=== PATIENT | female | born 1945 | race American Indian/Alaskan Native ===

== ENCOUNTER 2016-10-26 08:03 | Outpatient (CLI) | payer MEDICARE ==
--- NOTE | 2016-10-26 14:01 | Mammography Report ---
BILATERAL DIGITAL SCREENING MAMMOGRAM with CAD: 10/26/16 08:03:00 CLINICAL: Routine screening. COMPARISON:09/26/14 FINDINGS: The breasts are almost entirely fatty. No mass, architectural distortion or suspicious calcifications. IMPRESSION: No mammographic evidence of malignancy. BI-RADS CATEGORY: 1 - - Negative RECOMMENDATION: Routine mammographic screening in one year. COMMENT: Patient follow-up letters are generated by our [employer] application.
== END 2016-10-26 08:04 | disposition home or self-care (01) ==
LOC: SPVWC 08:03
PROVIDERS: ATTEND Internal Medicine
DX: Z12.31 Encounter for screening mammogram for malignant neoplasm of breast (principal)
CPT/HCPCS: 77067; G0202

== ENCOUNTER 2017-05-31 06:16 | Emergency (ER) | payer MEDICARE ==
[2017-05-31 06:48] LABS: Bilirubin,Urine NEG (Negative); Blood,Urine LG (Negative); Ketones,Urine NEG (Negative); Leukocyte Esterase,Urine NEG (Negative); Mucus,Urine FEW /HPF; Nitrite,Urine NEG (Negative); Urobilinogen,Urine < 2.0 mg/dL (<2.0)
[2017-05-31 06:49] LABS: RBC,Urine > 182.0 /HPF (0.0-6.0)
[2017-05-31 07:11] LABS: Basophils % (Auto) 1.1 % (0.0-1.8); Eosinophils % (Auto) 2.9 % (0.0-4.3); Hemoglobin 13.3 gm/dl (10.1-14.3); Mean Corpuscular HGB Conc 33 % (30-34); Mean Corpuscular Hemoglobin 28 pg (28-32); Mean Corpuscular Volume 84 fl (79-97); Platelet Count 226 K/mm3 (140-440); Red Blood Count 4.74 M/mm3 (3.65-5.03); Red Cell Distribution Width 13.7 % (13.2-15.2); White Blood Count 6.4 K/mm3 (4.5-11.0)
[2017-05-31 07:29] LABS: Anion Gap 18 mmol/L; BUN/Creatinine Ratio 28.57; Blood Urea Nitrogen 20 mg/dL (7-17); Carbon Dioxide 23 mmol/L (22-30); Chloride 105.2 mmol/L (98-107); Glucose 128 mg/dL (65-100); Potassium 3.7 mmol/L (3.6-5.0); Sodium 142 mmol/L (137-145)
--- NOTE | 2017-05-31 09:36 | Emergency Department Report ---
ED Female HPI - General Chief complaint: Urogenital-Female Stated complaint: POSS UTI Time Seen by Provider: 05/31/17 09:24 Source: patient Mode of arrival: Ambulatory Limitations: No Limitations - History of Present Illness Initial comments: This is a 72-year-old female nontoxic, well nourished in appearance, no acute signs of distress presents to the ED complaining of dysuria x2 days. Patient denies any hematuria, back pain, nausea, vomiting, abdominal pain, pelvic pain, vaginal discharge, fever, chills, nausea vomiting, vomiting, chest pain or shortness of breath. Patient stated she has a burning sensation upon urination. States allergies to lisinopril. Past medical history includes diabetes and hypertension. MD Complaint: dysuria -: Gradual, days(s) (2) Radiation: non-radiating Severity: mild Quality: burning Consistency: constant Improves with: none Worsens with: urination Are you Now?: No Associated Symptoms: dysuria. denies: vaginal discharge, vaginal bleeding, nausea/vomiting, fever/chills, headaches, loss of appetite, hematuria, rash, seizure, shortness of breath, syncope, weakness - Related Data Sexually active: No Home Medications Medication Instructions Recorded Confirmed Last Taken Calcium Carbonate/Vitamin D3 1 tab PO QDAY 06/22/13 06/22/13 06/22/13 10:00 [Calcium 600-Vit D3 200 Tablet] Hydrochlorothiazide [HCTZ] 12.5 mg PO QDAY 06/22/13 06/22/13 06/22/13 10:00 Mirabegron [Myrbetriq] 25 mg PO QDAY 06/22/13 06/22/13 06/22/13 10:00 Multivitamin [Multi-Vitamin Daily] 1 tab PO QDAY 06/22/13 06/22/13 06/22/13 10: 00 Potassium Chloride 10 meq PO BID 06/22/13 06/22/13 06/22/13 10:00 Pravastatin Sodium [Pravastatin] 20 mg PO QHS 06/22/13 06/22/13 06/21/13 21:00 Prednisone [predniSONE] 7.5 mg PO QDAY 06/22/13 06/22/13 06/22/13 10:00 Triamter/Hctz 37.5-25 mg 1 tab PO QDAY 10/06/22/13 06/22/13 10:00 [Maxzide-25] metFORMIN [Glucophage] 500 mg PO BID 06/22/13 06/22/13 06/22/13 10:00 Previous Rx's Medication Instructions Recorded Last Taken Type Hydrocodone Bit/Acetaminophen 1 each PO Q6H PRN #12 tablet 06/22/13 Unknown Rx [Lortab 5-500 Tablet] Diazepam Tab [Valium] 2 mg PO TID PRN #14 tablet 08/10/15 Unknown Rx Polyethylene Glycol 3350 [Miralax 17 gm PO QDAY #30 packet 05/31/17 Unknown Rx 3350] Sulfamethoxazole/Trimethoprim 1 each PO BID #14 tablet 05/31/17 Unknown Rx [Bactrim DS TAB] Allergies Allergy/AdvReac Type Severity Reaction Status Date / Time lisinopril Allergy Swelling Verified 06/22/13 11:48 ED Review of Systems ROS: Stated complaint: POSS UTI Other details as noted in HPI Constitutional: denies: chills, fever Eyes: denies: eye pain, eye discharge, vision change ENT: denies: ear pain, throat pain Respiratory: denies: cough, shortness of breath, wheezing Cardiovascular: denies: chest pain, palpitations Endocrine: no symptoms reported Gastrointestinal: denies: abdominal pain, nausea, diarrhea Genitourinary: dysuria. denies: urgency, discharge Musculoskeletal: denies: back pain, joint swelling, arthralgia Skin: denies: rash, lesions Neurological: denies: headache, weakness, paresthesias Psychiatric: denies: anxiety, depression Hematological/Lymphatic: denies: easy bleeding, easy bruising ED Past Medical Hx - Past Medical History Previous Medical History?: Yes Hx Hypertension: Yes Hx Diabetes: Yes Additional medical history: polymyalgia rheumatica - Surgical History Past Surgical History?: Yes Hx Breast Surgery: Yes (breast reduction) Additional Surgical History: hysterectomy. total left knee. bilateral carpel tunel. tumor right ear removed - Social History Smoking Status: Never Smoker Substance Use Type: None - Medications Home Medications: Home Medications Medication Instructions Recorded Confirmed Last Taken Type Calcium Carbonate/Vitamin D3 1 tab PO QDAY 06/22/13 06/22/13 06/22/13 10:00 History [Calcium 600-Vit D3 200 Tablet] Hydrochlorothiazide [HCTZ] 12.5 mg PO QDAY 06/22/13 06/22/13 06/22/13 10:00 History Hydrocodone Bit/Acetaminophen 1 each PO Q6H PRN #12 tablet 06/22/13 Unknown Rx [Lortab 5-500 Tablet] Mirabegron [Myrbetriq] 25 mg PO QDAY 06/22/13 06/22/13 06/22/13 10:00 History Multivitamin [Multi-Vitamin Daily] 1 tab PO QDAY 06/22/13 06/22/13 06/22/13 10: 00 History Potassium Chloride 10 meq PO BID 06/22/13 06/22/13 06/22/13 10:00 History Pravastatin Sodium [Pravastatin] 20 mg PO QHS 06/22/13 06/22/13 06/21/13 21:00 History Prednisone [predniSONE] 7.5 mg PO QDAY 06/22/13 06/22/13 06/22/13 10:00 History Triamter/Hctz 37.5-25 mg 1 tab PO QDAY 06/22/13 06/22/13 06/22/13 10:00 History [Maxzide-25] metFORMIN [Glucophage] 500 mg PO BID 06/22/13 06/22/13 06/22/13 10:00 History Diazepam Tab [Valium] 2 mg PO TID PRN #14 tablet 08/10/15 Unknown Rx Polyethylene Glycol 3350 [Miralax 17 gm PO QDAY #30 packet 05/31/17 Unknown Rx 3350] Sulfamethoxazole/Trimethoprim 1 each PO BID #14 tablet 05/31/17 Unknown Rx [Bactrim DS TAB] ED Physical Exam - General Limitations: No Limitations General appearance: alert, in no apparent distress - Head Head exam: Present: atraumatic, normocephalic, normal inspection - Eye Eye exam: Present: normal appearance, PERRL, EOMI. Absent: scleral icterus, conjunctival injection, nystagmus, periorbital swelling, periorbital tenderness Pupils: Present: normal accommodation - ENT ENT exam: Present: normal exam, normal orophraynx, mucous membranes moist, TM's normal bilaterally, normal external ear exam - Neck Neck exam: Present: normal inspection, full ROM. Absent: tenderness, meningismus, lymphadenopathy, thyromegaly - Respiratory Respiratory exam: Present: normal lung sounds bilaterally. Absent: respiratory distress, wheezes, rales, rhonchi, stridor, chest wall tenderness, accessory muscle use, decreased breath sounds, prolonged expiratory - Cardiovascular Cardiovascular Exam: Present: regular rate, normal rhythm, normal heart sounds. Absent: bradycardia, tachycardia, irregular rhythm, systolic murmur, diastolic murmur, rubs, gallop - GI/Abdominal GI/Abdominal exam: Present: soft, normal bowel sounds. Absent: distended, tenderness, guarding, rebound, rigid, diminished bowel sounds - Expanded GI/Abdominal Exam Expanded GI/Abdominal exam: Absent: psoas sign, obturator sign, heel tap sign, Burt's sign, Rovsing's sign, tenderness at Mcburney's Point, ascites - Rectal Rectal exam: Present: deferred - Extremities Exam Extremities exam: Present: normal inspection, full ROM, normal capillary refill. Absent: tenderness, pedal edema, joint swelling, calf tenderness - Back Exam Back exam: Present: normal inspection, full ROM. Absent: tenderness, CVA tenderness (R), CVA tenderness (L), muscle spasm, paraspinal tenderness, vertebral tenderness, rash noted - Neurological Exam Neurological exam: Present: alert, oriented X3, CN II-XII intact, normal gait, reflexes normal - Psychiatric Psychiatric exam: Present: normal affect, normal mood - Skin Skin exam: Present: warm, dry, intact, normal color. Absent: rash ED Course Vital Signs 05/31/17 06:21 Temperature 98.2 F Pulse Rate 68 Respiratory 18 Rate Blood Pressure 164/75 O2 Sat by Pulse 100 Oximetry - Reevaluation(s) Reevaluation #1: 05/31/17 10:56 Patient is speaking in full sentences with no signs of distress noted. - Consultations Consultation #1: 05/31/17 10:57 Dr. Keller was consulted by patient history, physical exam, and CT findings with UA and agrees to plan of care during discharge with follow-up. ED Medical Decision Making - Lab Data Result diagrams: 05/31/17 06:50 05/31/17 06:50 - Medical Decision Making This is a 72-year-old female that presents with dysuria. UA indicates patient having elevated RBCs. CT of abdomen/pelvis without contrast has been obtained and dictated by Dr. Campo. Impression; diverticulosis sigmoid colon. Normal kidneys. No evidence of stones. Patient was notified of CT findings with any questions. Patient stated she has history of constipation and is following up with her primary care doctor for disc concerns. Patient stated 10 years ago she had a normal colonoscopy and stated she has to get a repeat colonoscopy next month. Patient has appointment with her Dr. Urena on June 07. Patient be discharged with MiraLAX and Bactrim apparently for UTI. Doctor Ifrah Pratt and has been consulted by patient and agrees to the plan of care. Patient was instructed to follow-up with a primary care doctor in 3-5 days or if symptoms worsen and continue return to emergency room as soon as possible possible. At time time of discharge, the patient does not seem toxic or ill in appearance. No acute signs of distress noted. Patient agrees to discharge treatment plan of care. No further questions noted by the patient. Critical care attestation.: If time is entered above; I have spent that time in minutes in the direct care of this critically ill patient, excluding procedure time. ED Disposition Clinical Impression: Dysuria Hematuria Qualifiers: Hematuria type: unspecified type Qualified Code(s): R31.9 - Hematuria, unspecified Diverticulosis Qualifiers: Diverticulosis site: unspecified location Diverticulosis bleeding: diverticulosis without bleeding Qualified Code(s): K57.90 - Diverticulosis of intestine, part unspecified, without perforation or abscess without bleeding Disposition: -01 TO HOME OR SELFCARE Is pt being admited?: No Does the pt Need Aspirin: No Condition: Stable Instructions: Dysuria (ED), Diverticulosis Diet (ED), Diverticulosis (ED), Polyethylene Glycol 3350 (By mouth), Sulfamethoxazole/Trimethoprim (By mouth) Additional Instructions: follow-up with a primary care doctor in 3-5 days for your urine blood or if symptoms worsen and continue return to emergency room as soon as possible possible. Prescriptions: Polyethylene Glycol 3350 [Miralax 3350] 17 gm PO QDAY #30 packet Sulfamethoxazole/Trimethoprim [Bactrim DS TAB] 1 each PO BID #14 tablet Referrals: PRIMARY MD JANINA [Primary Care Provider] - 3-5 Days HUGO CARTER MD [Staff Physician] - 3-5 Days [facility] [Outside] - 3-5 Days [facility] [Outside] - 3-5 Days Forms: Work/School Release Form(ED)
--- NOTE | 2017-05-31 10:30 | Cat Scan Report ---
CT scan of abdomen and pelvis without IV contrast: History: Dysuria, rule out kidney stones. Findings: Normal lung bases. No pleural pericardial effusion. Normal liver spleen pancreas. Patient status post cholecystectomy. Normal adrenals kidney parenchyma and bladder. No free intraperitoneal fluid or air. No evidence of adenopathy. Gaseous colon with moderate volume stool in colon. No evidence of appendicitis or diverticulitis. Diverticulosis sigmoid colon. Impression: Diverticulosis sigmoid colon.
[2017-05-31 11:15] VITALS: BP 169/83
== END 2017-05-31 11:15 | disposition home or self-care (01) ==
LOC: ED 06:16
DX: R30.0 Dysuria (principal); R31.9 Hematuria, unspecified; K57.90 Diverticulosis of intestine, part unspecified, without perforation or abscess without bleeding; I10 Essential (primary) hypertension; E11.9 Type 2 diabetes mellitus without complications; Z88.8 Allergy status to other drugs, medicaments and biological substances
CPT/HCPCS: 36415; 74176; 80048; 81001; 85025

== ENCOUNTER 2017-11-06 08:19 | Outpatient (CLI) | payer MEDICARE ==
--- NOTE | 2017-11-06 11:51 | Mammography Report ---
BILATERAL DIGITAL SCREENING MAMMOGRAM with CAD: 11/06/17 08:19:00 CLINICAL: Routine screening. COMPARISON:10/26/16 FINDINGS: The breasts are almost entirely fatty. No mass, architectural distortion or suspicious calcifications. IMPRESSION: No mammographic evidence of malignancy. BI-RADS CATEGORY: 1 - - Negative RECOMMENDATION: Routine mammographic screening in one year. COMMENT: Patient follow-up letters are generated by our [employer] application.
== END 2017-11-06 08:20 | disposition home or self-care (01) ==
LOC: SPVWC 08:19
PROVIDERS: ATTEND Internal Medicine
DX: Z12.31 Encounter for screening mammogram for malignant neoplasm of breast (principal)
CPT/HCPCS: 77067

== ENCOUNTER 2018-03-15 07:12 | Outpatient (CLI) | payer MEDICARE ==
--- NOTE | 2018-03-15 08:09 | Ultrasound Report ---
ULTRASOUND ABDOMEN LIMITED INDICATION: Elevated LFTs. COMPARISON: 05/31/2017 CT. FINDINGS: Right upper quadrant sonography suggests mild diffuse hepatic echogenic coarsening without CT attenuation confirmation of fatty liver previously, possibly hepatocellular disease in an appropriate setting. Grossly preserved contours. No definite focal suspicious lesion or biliary dilatation. Gallbladder again surgically absent. Common bile duct is 7.9 mm. Imaged pancreas, nonaneurysmal abdominal aorta and IVC within normal limits. Nonhydronephrotic 9.7 x 4.4 x 4.5 cm right kidney with cortical thickness of 1.5 cm. Top normal renal cortical echogenicity. CONCLUSION: Coarse liver, cholecystectomy and top normal renal cortical echogenicity, as described. Please correlate. Thank you for the opportunity to participate in this patient's care.
== END 2018-03-15 07:13 | disposition home or self-care (01) ==
LOC: US 07:12
PROVIDERS: ATTEND Internal Medicine
DX: R94.5 Abnormal results of liver function studies (principal); I10 Essential (primary) hypertension
CPT/HCPCS: 76705

== ENCOUNTER 2018-11-07 09:44 | Outpatient (CLI) | payer MEDICARE ==
--- NOTE | 2018-11-07 10:42 | Mammography Report ---
BILATERAL DIGITAL SCREENING MAMMOGRAM with CAD: 11/07/18 09:44:00 CLINICAL: Routine screening. COMPARISON:11/06/17 FINDINGS: The breasts are almost entirely fatty. No mass, architectural distortion or suspicious calcifications. IMPRESSION: No mammographic evidence of malignancy. BI-RADS CATEGORY: 1 - - Negative RECOMMENDATION: Routine mammographic screening in one year. COMMENT: Patient follow-up letters are generated by our [employer] application.
== END 2018-11-07 09:45 | disposition home or self-care (01) ==
LOC: SPVWC 09:44
PROVIDERS: ATTEND Internal Medicine
DX: Z12.31 Encounter for screening mammogram for malignant neoplasm of breast (principal); I10 Essential (primary) hypertension; M19.90 Unspecified osteoarthritis, unspecified site
CPT/HCPCS: 77067